=== PATIENT | male | born 1965 | race Caucasian/White ===

== ENCOUNTER → 2018-03-13 16:16 | Outpatient (CLI) | payer BC, SELFPAY ==
[2018-03-13 15:37] VITALS: BMI 26.9
[2018-03-13 18:30] LABS: Prolactin 6.5 ng/mL
== END ==
PROVIDERS: Family Provider Family Medicine; PCP Family Medicine; Referring Provider Family Medicine; Visit Provider Family Medicine
DX: N62 Hypertrophy of breast (principal)
CPT/HCPCS: 36415; 84146

== ENCOUNTER 2018-04-04 07:13 | Day surgery (SDC) | payer BC, SELFPAY ==
[2018-03-13 15:37] VITALS: BMI 26.9
--- NOTE | 2018-04-04 | LES_PTH ---
PATIENT: ANDERSON CUELLO LOC: [facility] [place] U#:[id number] AGE/SX: 53/M ROOM: RE04/04/[address]: Dr. Luis Swenson MD : 1965 BED: DIS: 04/04/2018 SPEC #: [id number] RECD: 04/04/18 09:07 STATUS: BONNIE ROSA #: [id number] DAVID: 04/04/18 00:[address]: Luis Swenson DEPT: SURGICAL PATHOLOGY RECD BY: Kierra Herring ENTERED: 04/04/18 10:15 SP TYPE: Lesion OTHR DR: Dr. Prasanth Jc, DO Tissues: Tongue, NOS Procedures: Frozen Section (charge) Frozen Section Add'l ([facility]) Surgery Specimen Level IV Frozen (no charge) HEADER OPERATION: Excision tongue lesion, glossectomy, less than one-half tongue PRE-OP DIAGNOSIS: Neoplasm of tongue TISSUE SUBMITTED: Right lateral tongue, sent for frozen at 0901 FROZEN SECTION DIAGNOSIS Right lateral tongue lesion, biopsy: Squamous papilloma, inflamed with associated granulation. AM:lc 04/04/18 Case has been reviewed in consultation with Dr. Villa who concurs with the above diagnosis. IDC:[facility] DIAGNOS[facility] Lesion of right lateral tongue, biopsy: Squamous papilloma, inflamed. See microscopic description. AM:lc 04/07/18 COMMENT Case has been reviewed in consultation with Dr. Villa who concurs with the above diagnosis. IDC:[facility] DESCRIPTION Slides are reviewed. Sections shows squamous papilloma with acute and chronic inflammation and focal microabscess formation. GROSS DESCRIPTION Received fresh for frozen section diagnosis labeled with the patient's name is a specimen designated right lateral tongue. The specimen consists of a piece of pink-red mucosal tissue measuring 3 x 2 cm and up to 1.5 cm in thickness. The skin surface is covered with a bulbus lesion. The specimen is oriented as follows: long suture - anterior, short suture - superior. The specimen is inked as follows: superior - blue, inferior - green, anterior - yellow, posterior - black. The specimen is serially sectioned and submitted entirely for frozen section diagnosis in three cassettes as follows: 1 - frozen section, anterior and posterior margins, enface, 2 & 3 - rest of the specimen. / SJ:rg 04/04/18 TC:1 CPT: 84900, 11510, 76359 x2
[2018-04-04 07:31] VITALS: BP 130/74; PULSE 79; RESP 18; TEMP 37.2; O2SAT 97; BMI 27.5
--- NOTE | 2018-04-04 09:47 | PCM.OPRPT ---
Problem List (1) Benign neoplasm of tongue Status: Chronic Report of Operation Date of Procedure: 04/04/18 Pre-Operative Diagnosis: Benign lesion of the right lateral tongue Post-Operative Diagnosis: Same Surgery/Procedure Performed:: Partial glossectomy right tongue Description of Surgical Findings:: Keith is a 53-year-old male with a slowly enlarging papillomatous lesion arising off the midportion of the right lateral aspect of the tongue. This had grown progressively and was highly suspicious for a neoplastic process and possible malignancy and surgical resection for definitive evaluation and potentially cure was offered and he was eager to proceed. The risks, alternatives, potential benefits, and complications were discussed at length and any questions answered to the patient and/or caregiver's satisfaction. Witnessed informed consent was obtained in the office, and the patient and/or caregiver was agreeable to proceed. Procedure went as follows: The patient is identified in the preoperative holding and brought to the operating room where he is placed under general anesthesia and intubated. When appropriate anesthesia is obtained a dental guard was placed as well as the cheek retractors to allow for positioning of the the oral cavity and tongue. There is noted to be a large papillomatous lesion approximately 2 x 3 cm in size arising from the right lateral aspect of the tongue. This was then injected at its base with 1% lidocaine with 100,000 epinephrine in several locations for a total of 6 cc. A retaining silk suture was placed in the midline of the tongue to allow for anterior retraction and using monopolar cautery the mucosa surrounding the lesion leaving a 1 cm margin of normal-appearing tissue was then incised. Dissection was then carried out deeply through the mucosa and submucosa and muscular layers leaving a 1 cm cuff of normal tissue around the palpable mass. This resulted in a 3 x 5 cm area of excision. The specimen was then sent for frozen section evaluation which showed an inflamed papillomatous lesion with final determination pending permanent sectioning and staining. The wound was then closed with interrupted 3-0 Vicryl mattress and interrupted sutures to close the deep muscular and mucosal edges. No significant bleeding was encountered and upon completion the mouth gag and cheek retractor removed and the patient returned to anesthesia where he was revived and extubated without complication having tolerated the procedure well. Type of Anesthesia:: General Anesthesiologist: Luis Boles Special Medications: none Specimen's removed: right lateral tongue lesion Drains: none Estimated Blood Loss (mL): 5 mL Fluids Replaced: 800 mL Grafts/Implants Used: none - Complications none - Admit VTE Documentation VTE Present on Admission: No VTE Mechan Device Prophylaxis: SCD's VTE Pharm Prophylaxis ordered?: No
--- NOTE | 2018-04-04 09:55 | DCINST_ITS ---
- Discharge Diagnoses Current Active Problems: Current Active and Chronic Problems (Last Updated 03/13/18 @ 15:40 by Vale Troy) Benign neoplasm of tongue (Chronic) You will use the following diet at home:: Regular Your food should be the consistency of: Mechanical soft (ground) Your liquids should be the consistency of: Regular/Thin Discharge Activity: Return to Normal Activity, May not drive while taking narcotic pain medications. Call your doctor if your incision/area has: Continuous Slow Oozing, Sudden Increased Bleeding, Increased Pain/ Swelling, Increased Redness, Foul Smelling Discharge, Swelling at the incision site Call your doctor if you observe: Fever of 101 or Higher, Uncontrolled pain Allergies/Adverse Reactions: Allergies No Known Allergies Allergy (Verified 04/04/18 07:30) Medications to take at Discharge Naproxen Sodium [Aleve] 220 mg PO Q8H PRN PRN 04/03/18 Primary Care Physician: Prasanth Jc DO [Primary Care Provider] - Test Results: Test results from this visit will be discussed in further detail at your follow- up appointment, if applicable. Please Follow Up With: Luis Swenson MD When: 1 week
[2018-04-04 10:01] VITALS: BP 130/74; BP 149/81; PULSE 68; RESP 16; TEMP 36.4; O2SAT 97
[2018-04-04 10:15] VITALS: BP 130/74; BP 139/79; PULSE 57; RESP 16; O2SAT 94
[2018-04-04 10:30] VITALS: BP 130/74; BP 136/78; PULSE 59; RESP 16; O2SAT 93
[2018-04-04 10:40] VITALS: BP 121/68; BP 130/74; PULSE 63; RESP 16; TEMP 36.6; O2SAT 96
[2018-04-04 10:55] VITALS: BP 130/74
== END 2018-04-04 11:04 | disposition home or self-care (01) ==
LOC: SDC 07:14 → AC 07:15
PROVIDERS: Family Provider Family Medicine; PCP Family Medicine; Referring Provider Otolaryngology; Visit Provider Otolaryngology
PROC: (CPT 41120; principal; 2018-04-04 08:45)
DX: D10.1 Benign neoplasm of tongue (principal); Z87.891 Personal history of nicotine dependence
CPT/HCPCS: 41120; 88305; 88331; 88332; J7120; J2405

== ENCOUNTER → 2022-10-04 | Outpatient (CLI) | payer OTHER, SELFPAY ==
[2022-10-04 16:58] LABS: Absolute Lymphocyte Count 1.91 X10^3/uL (0.83-4.51); Absolute Neutrophil Count 2.2 X10^3/uL (2.0-7.7); Basophil# 0.04 X10^3/uL; Basophil% 0.8 % (0-1); Eosinophil# 0.29 X10^3/uL; Hematocrit 44.8 % (40-54); Hemoglobin 14.9 g/dL (13.0-16.5); Lymphocyte # 1.91 X10^3/ul (0.83-4.51); Lymphocyte % 39.6 % (19-41); Mean Corp Hgb Conc 33.3 g/dL (32-36); Mean Corpuscular Hgb 31.6 pg (27.0-32.0); Mean Corpuscular Volume 95.1 fL (80-94); Monocyte# 0.42 X10^3/uL; Monocyte% 8.7 % (0-10); NRBC Flagged by Analyzer 0 % (0-5); Neutrophil # 2.15 X10^3/uL (2.7-7.7); Neutrophil % 44.7 % (47-70); Platelet Count 167 K/mm3 (150-450); RBC Distribution Width CV 12.4 % (11.6-14.6); Red Blood Count 4.71 M/mm3 (4.6-6.2); White Blood Count 4.8 K/mm3 (4.4-11.0)
[2022-10-04 17:43] LABS: ALB/GLOB Ratio 1.4 RATIO (0.9-2.4); AST(SGOT) 23 U/L (15-37); Alanine Aminotransfer ALT/SGPT 31 U/L (16-61); Albumin, Serum 3.9 g/dL (3.2-5.0); Alkaline Phosphatase 59 U/L (45-117); Anion Gap 5 (5-15); BUN 18 mg/dL (7-18); BUN/Creat Ratio 19.1 RATIO (10-20); Calcium,Total 8.9 mg/dL (8.5-10.1); Chloride 108 mmol/L (98-107); Creatinine, Serum 0.94 mg/dL (0.70-1.30); EST Glomerular Filtration Rate 88 mL/min (>60); Est Glom Filt Rate - Afr Amer 106 mL/min (>60); Globulin 2.8 g/dL (2.2-4.2); Glucose 84 mg/dL (74-106); Potassium 4.4 mmol/L (3.5-5.1); Protein, Total 6.7 g/dL (6.4-8.2); Sodium Level 140 mmol/L (136-145)
== END | disposition home or self-care (01) ==
LOC: BIMLAB 15:08
PROVIDERS: PCP Family Medicine; Visit Provider Family Medicine
DX: N62 Hypertrophy of breast (principal)
CPT/HCPCS: 36415; 80053; 85025

== ENCOUNTER → 2023-10-16 | Outpatient (CLI) | payer OTHER, SELFPAY ==
[2023-10-16 13:32] LABS: ALB/GLOB Ratio 1.3 RATIO (0.9-2.4); AST(SGOT) 27 U/L (15-37); Alanine Aminotransfer ALT/SGPT 26 U/L (16-61); Albumin, Serum 3.8 g/dL (3.2-5.0); Alkaline Phosphatase 47 U/L (45-117); Anion Gap 6 (5-15); BUN 14 mg/dL (7-18); BUN/Creat Ratio 14.3 RATIO (10-20); Calcium,Total 8.7 mg/dL (8.5-10.1); Chloride 111 mmol/L (98-107); Creatinine, Serum 0.98 mg/dL (0.70-1.30); EST Glomerular Filtration Rate 84 mL/min (>60); Est Glom Filt Rate - Afr Amer 101 mL/min (>60); Globulin 2.9 g/dL (2.2-4.2); Glucose 51 mg/dL (74-106); Protein, Total 6.7 g/dL (6.4-8.2); Sodium Level 143 mmol/L (136-145)
== END | disposition home or self-care (01) ==
LOC: BIMLAB 08:24
PROVIDERS: PCP Family Medicine; Visit Provider Family Medicine
DX: N62 Hypertrophy of breast (principal)
CPT/HCPCS: 36415; 80053

== ENCOUNTER → 2023-10-25 | Outpatient (CLI) | payer OTHER, SELFPAY ==
--- NOTE | 2023-10-25 07:02 | ECHOD_ITS ---
Reason For Study: DYSPNEA Procedure This was a 2D Doppler, Color Flow transthoracic echocardiogram. Exam performed in department. Left Ventricle Normal LV size. The estimated ejection fraction is 55 %. No evidence for diastolic dysfunction. No regional wall motion abnormalities noted. Right Ventricle Normal RV size. Normal systolic function. Atria Normal left atrium. Normal right atrium. No doppler evidence for ASD. Mitral Valve There is no mitral valve stenosis. No mitral valve insufficiency. Tricuspid Valve There is no tricuspid stenosis. Trivial tricuspid valve insufficiency. Pulmonary artery systolic pressure is 30-35 mmHg. Aortic Valve Trisinus/trileaflet aortic valve. There is no aortic stenosis. No aortic valve insufficiency. Pulmonic Valve There is no pulmonic valvular stenosis. No pulmonic valve insufficiency. Great Vessels Normal aortic root. Pericardium/Pleural No pericardial effusion. MMode/2D Measurements & Calculations LVIDd: 4.0 cm IVSd: 1.0 cm Ao root diam: 3.3 cm LVIDs: 2.6 cm LVPWd: 1.0 cm RVDd: 3.3 cm FS: 35.4 % LAV(MOD-bp): 57.7 ml LVAd ap4: 30.7 cm2 LVAd ap2: 37.2 cm2 LAV(MOD-bp) Indexed: 28.6 ml/m2 LVLd ap4: 8.5 cm LVLd ap2: 9.3 cm LAV(MOD-sp2): 50.7 ml EDV(MOD-sp4): 89.2 ml EDV(MOD-sp2): 124.6 ml LAV(MOD-sp4): 50.5 ml EDV(sp4-el): 93.5 ml EDV(sp2-el): 126.5 ml LVAs ap4: 16.3 cm2 LVAs ap2: 19.2 cm2 LVLs ap4: 6.9 cm LVLs ap2: 7.2 cm ESV(MOD-sp4): 34.1 ml ESV(MOD-sp2): 44.6 ml ESV(sp4-el): 32.8 ml ESV(sp2-el): 43.8 ml EF(MOD-sp4): 61.8 % EF(MOD-sp2): 64.2 % EF(sp4-el): 64.9 % SV(MOD-sp4): 55.1 ml SV(MOD-sp2): 79.9 ml SV(sp4-el): 60.7 ml LA dimension(2D): 3.6 cm LA A4 area: 16.3 cm2 RA A4 area: 11.3 cm2 TAPSE: 2.2 cm Time Measurements MV dec time: 0.16 sec Doppler Measurements & Calculations MV E max bobby: 86.7 cm/sec Lat Peak E' Bobby: 14.1 cm/sec Med Peak E' Bobby: 11.9 cm/sec MV A max bobby: 43.4 cm/sec E/E' lat: 6.1 E/E' med: 7.3 MV E/A: 2.0 MV V2 max: 85.7 cm/sec MV P1/2t max bobby: 86.1 cm/sec Ao V2 max: 100.1 cm/sec MV max P.9 mmHg MV P1/2t: 57.0 msec Ao max P.0 mmHg MV V2 mean: 36.4 cm/sec MV dec slope: 443.0 cm/sec2 Ao V2 mean: 76.5 cm/sec MV mean P.66 mmHg Ao mean P.5 mmHg MV V2 VTI: 27.5 cm MVA(P1/2t): 3.9 cm2 Ao V2 VTI: 22.4 cm AV (velocity ratio): 0.84 LV V1 max: 84.1 cm/sec PA V2 max: 134.4 cm/sec TR max bobby: 258.7 cm/sec LV V1 max P.8 mmHg PA V2 mean: 84.4 cm/sec TR max P.8 mmHg LV V1 mean P.5 mmHg LV V1 mean: 56.6 cm/sec LV V1 VTI: 18.7 cm ECHO/Echo Complete Interpretation Summary The estimated ejection fraction is 55 %. No evidence for diastolic dysfunction. Ordering Physician: Prasanth Jc Referring Physician: Prasanth Jc Performed By: Barby Raymundo, KATHIA, RVT
== END | disposition home or self-care (01) ==
PROVIDERS: PCP Family Medicine; Referring Provider Family Medicine; Visit Provider Family Medicine
DX: R06.02 Shortness of breath (principal)
CPT/HCPCS: 93306